=== PATIENT | male | born 1945 | race Caucasian/White ===

== ENCOUNTER 2017-10-20 09:27 | Day surgery (SDC) | payer OTHER ==
[2017-10-20] VITALS (8 sets, daily range): BP systolic 99–161; BP diastolic 56–74; PULSE 58–82; RESP 14–37; Ht 170.2 cm; Wt 69.9 kg
[~2017-10-20] VITALS: Ht 170.2 cm; Wt 69.9 kg
[2017-10-20] MEDS ORDERED: LOSA100T7 PO (09:56)
[2017-10-20] MEDS ORDERED: ATOR20TA38 PO (09:56)
[2017-10-20] MEDS ORDERED: METO-335 PO (09:56)
[2017-10-20 10:30] LABS: BASOPHIL # 0.1 10^3/ul (0.0-0.1); BASOPHILS % 0.8 % (0.0-2.0); EOSINOPHILS # 0.1 10^3/ul (0.0-0.5); EOSINOPHILS % 1.5 % (0.0-7.0); HEMATOCRIT 39.8 % (42.0-52.0); HEMOGLOBIN 13.7 g/dl (14.0-18.0); LYMPHOCYTES # 1.2 10^3/ul (0.8-2.9); LYMPHOCYTES % 18.1 % (15.0-51.0); MEAN CORPUSCULAR HEMOGLOBIN 31.9 pg (29.0-33.0); MEAN CORPUSCULAR HGB CONC 34.4 g/dl (32.0-37.0); MEAN CORPUSCULAR VOLUME 92.6 fl (82.0-101.0); MEAN PLATELET VOLUME 11.5 fl (7.4-10.4); MONOCYTE # 0.6 10^3/ul (0.3-0.9); MONOCYTES % 8.3 % (0.0-11.0); NEUTROPHIL # 4.7 10^3/ul (1.6-7.5); NEUTROPHILS % 70.7 % (39.0-77.0); PLATELET COUNT 210 10^3/UL (140-415); RED CELL DISTRIBUTION WIDTH 13.3 % (11.5-14.5); WHITE BLOOD COUNT 6.6 10^3/ul (4.8-10.8)
[2017-10-20] MEDS ORDERED: NITROGLYCERIN (IC) 100 MCG/ML INJ ONE (10:38)
[2017-10-20] MEDS ORDERED: HEPARIN 1000 UNITS/NS (A-LINE) 1,000 ML ONE (10:38)
[2017-10-20] MEDS ORDERED: HEPARIN 1000 UNITS/ML 10 ML INJ ONE ×2 (10:38→10:46)
[2017-10-20] MEDS ORDERED: FENTAnyl 50 MCG/ML VIAL ONE (10:38)
[2017-10-20] MEDS ORDERED: VERAPAMIL 5 MG INJ ONE (10:38)
[2017-10-20] MEDS ORDERED: LIDOCAINE 1% (MDV) 20 ML INJ ONE (10:38)
[2017-10-20] MEDS ORDERED: MIDAZOLAM 1 MG/ML 2 ML INJ ONE (10:38)
[2017-10-20 10:53] LABS: INR 1.02; PROTIME 13.5 Sec (11.9-14.9); PT RATIO 1.1
[2017-10-20 10:54] LABS: PARTIAL THROMBOPLASTIN TIME 32.8 Sec (25.0-35.0)
[2017-10-20 10:57] LABS: CALCIUM 9.6 mg/dl (8.4-10.2); CREATININE 1.1 mg/dl (0.61-1.24); POTASSIUM 4.3 mmol/L (3.5-5.1)
[2017-10-20] MEDS ORDERED: ACETAMINOPHEN 325 MG TAB PO PRN ×2 (11:00→11:30)
[2017-10-20] MEDS ORDERED: SOD CHLORIDE 0.9% 1,000 ML IV SCH (11:24)
--- NOTE | 2017-10-20 11:29 | PDOCDIS ---
Discharge Instructions CONDITION Patient Condition: Good HOME CARE INSTRUCTIONS: Diet Instructions: Regular ACTIVITY: Activity Restrictions: Slowly Increase Activity Rest between Activity Avoid heavy lifting (less than 5 pounds for 3 days with right arm) Do not Drive (for 1 day) FOLLOW UP/APPOINTMENTS Follow-up Plan joanie 4-6 weeks CAROL RAM MD Oct 20, 2017 11:29
[2017-10-20] MEDS ORDERED: AL HYDROX/MG HYDROX/SIMETH 30 ML CUP PO PRN (11:30)
--- NOTE | 2017-10-20 11:38 | OPR ---
Date/Time of Note Date/Time of Note DATE: 10/20/17 TIME: 11:35 Operative Report Preoperative Diagnosis Severe aortic stenosis Postoperative Diagnosis same Surgeon see signature line Controlled Area Checker none Anesthesia Type: moderate sedation Estimated Blood Loss: minimal Transfusion none Specimen none Grafts/Implants none Complications none Pt Condition Post Procedure: stable Procedure Description C Bilateral selectve angiography - supervison and interpretation Moderate sedation Findings: LM - normal LAD - normal CX - normal RCA - normal, arising from the left coronary cusp very close to left coronary ostium Plan: AVR - was seen by Dr Bruner and will check to see if patient qualifies for TAVR at [facility] with dr hooks/CAROL Baird MD Oct 20, 2017 11:38
== END 2017-10-20 16:30 | disposition home or self-care (01) ==
LOC: SDS 09:27
PROVIDERS: ATTEND Internal Medicine Interventional Cardiology
DX: I35.0 Nonrheumatic aortic (valve) stenosis (principal); I10 Essential (primary) hypertension; E78.5 Hyperlipidemia, unspecified
CPT/HCPCS: 80048; 85025; 85610; 85730; 93458; C1887; J1644; J2250; J3010